=== PATIENT | female | born 1955 | race Caucasian/White ===

== ENCOUNTER → 2016-07-03 | Outpatient (CLI) | payer MEDICAID | LOC: FIMAGING 15:37 | PROVIDERS: ATTEND Physician Assistant Medical | DX: R41.3 Other amnesia (principal); G31.9 Degenerative disease of nervous system, unspecified ==

== ENCOUNTER → 2017-08-03 | Outpatient (CLI) | payer MEDICAID | LOC: FIMAGING 19:03 | PROVIDERS: ATTEND Physician Assistant Medical | DX: F03.90 Unspecified dementia, unspecified severity, without behavioral disturbance, psychotic disturbance, mood disturbance, and anxiety (principal); G31.9 Degenerative disease of nervous system, unspecified; R90.82 White matter disease, unspecified ==